=== PATIENT | male | born 1965 | race Caucasian/White ===

== ENCOUNTER → 2023-06-02 09:43 | Outpatient (REF) | payer OTHER, SELFPAY | LOC: RAD 09:43 | PROVIDERS: ATTENDING PHYSICIAN Nurse Practitioner Adult Health; FAMILY PHYSICIAN Internal Medicine | DX: R06.09 Other forms of dyspnea (principal) | CPT/HCPCS: 71046 ==

== ENCOUNTER → 2024-05-10 08:27 | Outpatient (REF) | payer OTHER, SELFPAY | LOC: HWRAD 08:27 | PROVIDERS: ATTENDING PHYSICIAN Internal Medicine | DX: G43.019 Migraine without aura, intractable, without status migrainosus (principal) | CPT/HCPCS: 70450 ==

== ENCOUNTER → 2024-06-28 10:54 | Outpatient (REF) | payer OTHER, SELFPAY | LOC: MRI 3T 10:54 | PROVIDERS: ATTENDING PHYSICIAN Psychiatry & Neurology Neurology; FAMILY PHYSICIAN Internal Medicine | DX: R93.0 Abnormal findings on diagnostic imaging of skull and head, not elsewhere classified (principal) | CPT/HCPCS: 70553; A9575 ==

== ENCOUNTER → 2024-07-25 10:01 | Outpatient (REF) | payer OTHER, SELFPAY | LOC: RCS 10:01 | PROVIDERS: ATTENDING PHYSICIAN Internal Medicine Cardiovascular Disease; FAMILY PHYSICIAN Internal Medicine | DX: I63.9 Cerebral infarction, unspecified (principal); I10 Essential (primary) hypertension; I50.30 Unspecified diastolic (congestive) heart failure; I48.91 Unspecified atrial fibrillation | CPT/HCPCS: 93306 ==

== ENCOUNTER → 2024-08-05 06:34 | Outpatient (REF) | payer OTHER, SELFPAY | LOC: MRI 06:34 | PROVIDERS: ATTENDING PHYSICIAN Physical Medicine & Rehabilitation; FAMILY PHYSICIAN Internal Medicine | DX: I63.9 Cerebral infarction, unspecified (principal) | CPT/HCPCS: 70544; 70547 ==

== ENCOUNTER 2024-09-23 06:40 | Day surgery (SDC) | payer OTHER, SELFPAY ==
--- NOTE | 2024-09-23 07:26 | ITS.CL.IMPLP ---
Health Education Assistant - Implant Loop
Implant Loop
Procedure Report:
Primary Physician: Dr Nicolas Sanchez
Primary Splitting Machine Feeder: Dr Lauren Coto
Procedure Date: 09/23/2024
Procedure: Placement of a loop recorder.
History/Indication:
1. See office H&P for complete history.
2. Patient is a pleasant 59-year-old male with a past medical history significant for hypertension, diabetes mellitus type 2, dyslipidemia, obesity, sleep apnea nonischemic cardiomyopathy with recovered EF, and imaging evidence of CVA without clear
etiology. Patient had uneventful 30-day event monitor. Due to concern for cryptogenic stroke, patient undergo ILR implant for longitudinal surveillance for possible arrhythmic etiology.
Method:
After informed consent was obtained, the patient was brought to the EP laboratory holding area in a fasting, non-sedated state. Peripheral access was established. The left chest was prepared and draped in a sterile fashion. A 'time out' was
called. Local anesthesia was injected in the subcutaneous tissue. The ILR was injected under the skin. Topical skin adhesive was applied. Following the procedure, the patient was taken to the recovery area in stable condition. No complications
were noted.
Device Data:
[employer]; Model# LINQII; Serial# [id number]
Conclusion:
Successful placement of a loop recorder.
Recommendations:
1. Follow-up will be arranged in the [facility] in 7-10 days for wound check.
2. Routine ILR care.
Antoine Starks DO
Clinical Cardiac Pressure Test Operator
cc: Dr Nicolas Sanchez; Dr Lauren Coto
== END 2024-09-23 08:45 | disposition home or self-care (01) ==
LOC: CATH 06:40
PROVIDERS: ATTENDING PHYSICIAN Internal Medicine Cardiovascular Disease; FAMILY PHYSICIAN Internal Medicine; OTHER PHYSICIAN Internal Medicine Cardiovascular Disease
DX: Z09 Encounter for follow-up examination after completed treatment for conditions other than malignant neoplasm (principal); I49.1 Atrial premature depolarization; I47.19 Other supraventricular tachycardia; Z86.73 Personal history of transient ischemic attack (TIA), and cerebral infarction without residual deficits; I42.8 Other cardiomyopathies; I10 Essential (primary) hypertension; E78.5 Hyperlipidemia, unspecified; E11.9 Type 2 diabetes mellitus without complications; G47.30 Sleep apnea, unspecified; K50.90 Crohn's disease, unspecified, without complications; K21.9 Gastro-esophageal reflux disease without esophagitis; Z87.891 Personal history of nicotine dependence; Z79.84 Long term (current) use of oral hypoglycemic drugs; Z79.82 Long term (current) use of aspirin; Z79.85 Long-term (current) use of injectable non-insulin antidiabetic drugs
CPT/HCPCS: 33285; C1764